=== PATIENT | female | born 1960 | race Caucasian/White ===

== ENCOUNTER → 2019-05-22 14:31 | Outpatient (CLI) | payer BC, SELFPAY ==
--- NOTE | 2019-05-22 14:36 | RAD_ITS ---
STUDY: X-RAY - LUMBAR SPINE REASON FOR EXAM: Female, 58 years old. Chronic pain TECHNIQUE: 3 view(s) of the lumbar spine were obtained. COMPARISON: None FINDINGS: Normal lumbar lordosis. There is no substantial scoliosis. There is a normal alignment of the vertebrae. There is multilevel endplate spondylosis of the lumbar vertebrae. There is mild multilevel disc space narrowing. Postoperative changes in the right upper quadrant status post cholecystectomy. RAD/Lumbar Spine 2 or 3 Views IMPRESSION: Degenerative change. No visualized acute loss of height or alignment. Electronically Signed: Sera Emanuel MD at 1:20 EDT Tel , Service support ,
--- NOTE | 2019-05-22 14:36 | RAD_ITS ---
STUDY: X-RAY - CERVICAL SPINE REASON FOR EXAM: Female, 58 years old. Chronic pain TECHNIQUE: 3 view(s) of the cervical spine were obtained. COMPARISON: None FINDINGS: There are degenerative changes of the anterior atlantoaxial articulation. Normal odontoid process. Normal cervical lordosis. There is multi-level endplate spondylosis. C4-C5 C5-C6 there is mild disc space narrowing and posterior osteophyte formation at the level of C5-C6. Normal visualized intervertebral neuroforamina. The soft tissue structures are unremarkable. RAD/Cerv Spine 2 or 3 Views IMPRESSION: Degenerative change. No apparent acute loss of height or alignment. Electronically Signed: Sera Emanuel MD at 1:12 EDT Tel , Service support ,
== END ==
LOC: RAD 14:34
PROVIDERS: Family Provider Family Medicine; PCP Family Medicine; Referring Provider Anesthesiology Pain Medicine; Visit Provider Anesthesiology Pain Medicine
DX: M47.812 Spondylosis without myelopathy or radiculopathy, cervical region (principal); M48.02 Spinal stenosis, cervical region; M47.816 Spondylosis without myelopathy or radiculopathy, lumbar region; M48.061 Spinal stenosis, lumbar region without neurogenic claudication
CPT/HCPCS: 72040; 72100